=== PATIENT | female | born 1960 | race Caucasian/White ===

== ENCOUNTER 2022-05-25 16:30 | Emergency (ER) | payer OTHER, SELFPAY ==
[~2022-05-25 16:30] MED LIST: Iopamidol-370 76% 500 ML 1 ML ONE
[2022-05-25] MEDS ORDERED: Ondansetron ODT 4 MG TAB ONE (17:30)
[2022-05-25 17:34] LABS: Hemoglobin 18.6 g/dL (12.0-16.0); Mean Corpuscular HGB CONC 32.2 g/dL (32.0-36.0); Mean Corpuscular Hemoglobin 31.8 pg (27.0-31.0); Mean Corpuscular Volume 98.7 fL (78.0-98.0); Mean Platelet Volume 8.8 fL (7.4-10.4); Platelet Count 189 thou/uL (130-400); RBC Distribution Width 12.2 % (11.5-14.5); Red Blood Cell (RBC) Count 5.83 mill/uL (4.20-5.40); White Blood Cell (WBC) Count 5.6 thou/uL (4.8-10.8)
[2022-05-25] MEDS ORDERED: Acetaminophen 325 MG TAB ONE (17:37)
[2022-05-25] MEDS ORDERED: Ketorolac Tromethamine 30 MG/ML VIAL ONE (17:37)
[2022-05-25 18:00] LABS: ALT (SGPT) 21 U/L (8-55); AST (SGOT) 37 U/L (5-34); Albumin 4.4 g/dL (3.5-5.0); Alkaline Phosphatase 89 U/L (40-110); Anion Gap 17 mmol/L (10-20); BUN (Urea Nitrogen) 9 mg/dL (9.8-20.1); Bilirubin, Total 0.4 mg/dL (0.2-1.2); Calc. Creatinine Clearance 0 mL/min (70-130); Carbon Dioxide 25 mmol/L (22-29); Chloride 96 mmol/L (98-107); Estimated GFR 94; Globulin 2.9 g/dL (2.4-3.5); Glucose 104 mg/dL (70-105); Potassium 3.9 mmol/L (3.5-5.1); Protein, Total 7.3 g/dL (6.0-8.3); Sodium 134 mmol/L (136-145)
[2022-05-25 18:12] LABS: Band 26 % (5-11); Lymphocytes 21 % (21-51); MDiff Complete? YES; Monocytes 16 % (0-10); Neutrophil 28 % (42-75); Platelet Morphology Comment Appears Adequate; Polychromasia SLIGHT = 2-3 cells (100X) (0-2/hpf); Reactive Lymphocytes 9 % (0-10)
[2022-05-25 19:50] LABS: INR-International Normal Ratio 0.9; Prothrombin Time 12.7 sec (12.0-14.7)
[2022-05-25 19:51] LABS: PTT 35.9 sec (22.9-36.1)
== END 2022-05-25 21:43 | disposition home or self-care (01) ==
LOC: ERS 16:30
DX: U07.1 COVID-19 (principal); D72.829 Elevated white blood cell count, unspecified; I10 Essential (primary) hypertension; J44.9 Chronic obstructive pulmonary disease, unspecified; F17.200 Nicotine dependence, unspecified, uncomplicated
CPT/HCPCS: 36415; 71045; 74177; 80053; 83605; 84484; 85025; 85610; 85730; 93005; 96361; 96374; J1885; Q0162; Q9967

== ENCOUNTER 2023-03-01 14:18 | Outpatient (CLI) | payer OTHER | END 2023-03-01 14:19 | disposition home or self-care (01) | LOC: BICMRI 14:18 | PROVIDERS: ATTEND Surgery | DX: M54.6 Pain in thoracic spine (principal); M47.22 Other spondylosis with radiculopathy, cervical region; J43.9 Emphysema, unspecified; M48.02 Spinal stenosis, cervical region; M43.8X4 Other specified deforming dorsopathies, thoracic region | CPT/HCPCS: 72050; 72128; 72141; 72146 ==

== ENCOUNTER 2023-04-26 13:51 | Outpatient (CLI) | payer OTHER ==
[2023-04-26 14:51] LABS: Hematocrit 46.6 % (34.9-44.5); Hemoglobin 15.6 g/dL (12.0-15.5); Mean Corpuscular HGB CONC 33.5 g/dL (32.0-36.0); Mean Corpuscular Volume 95.7 fl (81.6-98.3); Mean Platelet Volume 9.8 fl (7.4-10.4); Platelet Count 233 10x3/uL (150-450); RBC Distribution Width 14.3 % (11.5-14.5); Red Blood Cell (RBC) Count 4.87 10x6/uL (3.90-5.03); White Blood Cell (WBC) Count 10.3 10x3/uL (3.5-10.5)
[2023-04-26 15:15] LABS: PTT 27.8 sec (22.0-33.0); Prothrombin Time 10.4 sec (9.5-12.1)
[2023-04-26 15:18] LABS: Anion Gap 16 mmol/L (10-20); BUN (Urea Nitrogen) 11 mg/dL (9.8-20.1); Calc. Creatinine Clearance 0 mL/min (70-130); Calcium 10.3 mg/dL (7.8-10.44); Carbon Dioxide 24 mmol/L (23-31); Chloride 103 mmol/L (98-107); Estimated GFR 88; Glucose 88 mg/dL (80-115); Sodium 139 mmol/L (136-145)
== END 2023-04-26 13:52 | disposition home or self-care (01) ==
LOC: LABBT 13:51
PROVIDERS: ATTEND Surgery
DX: Z01.818 Encounter for other preprocedural examination (principal); M54.12 Radiculopathy, cervical region; M50.00 Cervical disc disorder with myelopathy, unspecified cervical region
CPT/HCPCS: 80048; 85027; 85610; 85730; 93005; 93010

== ENCOUNTER 2023-04-26 14:00 | Inpatient (IN) | payer OTHER ==
[2023-04-26 14:20] VITALS: BMI 16.2
[2023-04-29] MEDS ORDERED: Thrombin 5000 UNITS/5 ML VIAL ONE (06:25)
[2023-04-29] MEDS ORDERED: Fentanyl 250 MCG/5 ML VIAL ONE (06:49)
[2023-04-29] MEDS ORDERED: Sodium Chloride 0.9% 100 ML ONE (07:17)
[2023-04-29] MEDS ORDERED: CEFAZOLIN 2 GM VIAL ONE (07:17)
[2023-04-29] MEDS ORDERED: Midazolam HCl 2 mg/2 ml Vial ONE (07:29)
[2023-04-29] MEDS ORDERED: Albuterol HFA (OR) 200 PUFF INH ONE ×2 (07:39→08:05)
[2023-04-29] MEDS ORDERED: PHENYLEPHRINE-NS 100 MCG/ML 10 ML SYRINGE ONE (08:05)
[2023-04-29] MEDS ORDERED: NEOSTIGMINE 3 MG/3 ML SYR 3 MG/3 ML SYRINGE ONE (08:05)
[2023-04-29] MEDS ORDERED: Glycopyrrolate 0.2 MG/ML 5 ML SYRINGE ONE (08:05)
[2023-04-29] MEDS ORDERED: Lidocaine 1% PF 5 ML VIAL ONE (08:05)
[2023-04-29] MEDS ORDERED: Rocuronium Bromide 10 MG/ML (10ML VIAL) ONE (08:05)
[2023-04-29] MEDS ORDERED: PROPOFOL 200 MG/20 ML VIAL ONE (08:05)
[2023-04-29] MEDS ORDERED: Dexamethasone 20 MG/5 ML VIAL ONE (08:05)
[2023-04-29] MEDS ORDERED: Ondansetron PF 4 MG/2 ML Vial ONE (08:05)
[2023-04-29] MEDS ORDERED: Acetaminophen/Codeine 30-300mg Tablet PO PRN (10:10)
[2023-04-29] MEDS ORDERED: Morphine 2 MG/ML VIAL SLOW IVP PRN (10:10)
[2023-04-29] MEDS ORDERED: Ondansetron PF 4 MG/2 ML Vial IVP PRN (10:10)
[2023-04-29] MEDS ORDERED: traMADol HCl 50 MG TAB PO PRN (10:10)
[2023-04-29] MEDS ORDERED: Acetaminophen 325 MG TAB PO PRN (10:10)
[2023-04-29] MEDS ORDERED: Benzocaine/Menthol 1 LOZ LOZ PO PRN (10:12)
[2023-04-29] MEDS ORDERED: Phenol 118 ML BOT PO PRN (10:12)
[2023-04-29] MEDS ORDERED: hydrALAZINE 20 MG/ML VIAL SLOW IVP PRN (10:12)
[2023-04-29] MEDS ORDERED: Non-Formulary Item 1 EACH (Albuterol Sulfate [Proair Digihaler] 90 MCG Aer.Pw.Bas) PO PRN (10:13)
[2023-04-29] MEDS ORDERED: MORPHINE SULFATE 10 MG PO PRN ×2 (10:13→10:40)
[2023-04-29] MEDS ORDERED: Non-Formulary Item 1 EACH (Trazodone Hcl [Trazodone Hcl] 100 MG Tablet) PO PRN (10:13)
[2023-04-29] MEDS ORDERED: Morphine Sulfate 2 MG/ML SYRINGE SLOW IVP PRN (10:26)
[2023-04-29] MEDS ORDERED: Promethazine HCl 25 MG/ML VIAL IM PRN (10:26)
[2023-04-29] MEDS ORDERED: Ondansetron HCl/PF 4 MG/2 ML Vial IVP PRN (10:26)
[2023-04-29] MEDS ORDERED: HYDROmorphone 2 MG/ML VIAL SLOW IVP PRN (10:26)
[2023-04-29] MEDS ORDERED: PACU-Morphine 4MG/ML VIAL SLOW IVP PRN (10:26)
[2023-04-29] MEDS ORDERED: Albuterol 200 PUFF (6.7GM INHALER) INH PRN (10:37)
[2023-04-29] MEDS ORDERED: traZODone HCl 150 MG TAB PO PRN (10:44)
[2023-04-29] MEDS: Sodium Chloride 0.9% 1,000 ML IV SCH (10:56)
[2023-04-29] MEDS ORDERED: fentaNYL PF 100 MCG/2 ML SYRINGE ONE (11:14)
[2023-04-29] MEDS: Ipratropium Bromide 2.5 ml Neb NEB SCH ×3 (13:45→23:29)
[2023-04-29] MEDS ORDERED: Non-Formulary Item 1 EACH (Gabapentin [Gabapentin] 600 MG Tablet) PO SCH (15:00)
[2023-04-29] MEDS: Gabapentin 300 MG CAP PO SCH ×2 (16:15→19:45)
[2023-04-29] MEDS: CEFAZOLIN 2 GM in Sodium Chloride 0.9% 100 ML IVPB SCH ×2 (16:16→22:02)
[2023-04-29] MEDS: Mometasone 200 MCG/Formoterol 5 MCG 120 PUFF INHALER INH SCH (18:36)
[2023-04-29] MEDS: HYDROcodone/Acetaminophen 7.5/325 mg Tablet PO PRN (19:45)
[2023-04-29] MEDS: tiZANidine HCl 4 MG TAB PO PRN (19:45)
[2023-04-29] MEDS ORDERED: Non-Formulary Item 1 EACH (Teriparatide [Forteo] 2.4 ML Pen.Injctr) SC SCH (21:00)
[2023-04-29] MEDS ORDERED: Non-Formulary Item 1 EACH (Budesonide-Formoterol [Symbicort 160-4.5] 160 MG/4.5 MG Aer) INH SCH (21:00)
[2023-04-29] MEDS ORDERED: TERIPARATIDE SC SCH (21:00)
[2023-04-30] MEDS: Sodium Chloride 0.9% 1,000 ML IV SCH (03:04)
[2023-04-30] MEDS: HYDROcodone/Acetaminophen 7.5/325 mg Tablet PO PRN (03:05)
[2023-04-30] MEDS: tiZANidine HCl 4 MG TAB PO PRN (03:06)
[2023-04-30] MEDS: CEFAZOLIN 2 GM in Sodium Chloride 0.9% 100 ML IVPB SCH (05:17)
[2023-04-30] MEDS: Gabapentin 300 MG CAP PO SCH (08:19)
[2023-04-30] MEDS ORDERED: Losartan 25 MG TAB PO SCH (09:00)
[2023-04-30] MEDS ORDERED: Calcium Carbonate 600 MG + Vit D TAB PO SCH (09:00)
[2023-04-30] MEDS ORDERED: Multivitamin W/ Minerals 1 TAB PO SCH (09:00)
[2023-04-30] MEDS ORDERED: IRBESARTAN 75 MG PO SCH (09:00)
[2023-04-30] MEDS ORDERED: Non-Formulary Item 1 EACH (Sertraline Hcl [Zoloft] 50 MG Tablet) PO SCH (09:00)
[2023-04-30] MEDS ORDERED: Non-Formulary Item 1 EACH (Multivit-Min/Iron/Folic/Lutein [Centrum Silver Women] 1 TABLET PO SCH (09:00)
[2023-04-30] MEDS ORDERED: Sertraline 25 MG TAB PO SCH (09:00)
[2023-04-30] MEDS ORDERED: Non-Formulary Item 1 EACH (Tiotropium [Spiriva Handihaler] 18 MCG Box) INH SCH (09:00)
[2023-04-30] MEDS: Mometasone 200 MCG/Formoterol 5 MCG 120 PUFF INHALER INH SCH (10:30)
[2023-04-30] MEDS: Ipratropium Bromide 2.5 ml Neb NEB SCH (10:31)
[2023-04-30 11:43] VITALS: BP 124/79; TEMP 98.5
== END 2023-04-30 12:01 | disposition home or self-care (01) | DRG 473 ==
LOC: SURG A 04-29 05:36 → INTOOBSV 04-29 05:36 → OBSVTOIN 04-29 12:39 → SURG A 04-29 14:41
PROVIDERS: ADMIT Surgery; ATTEND Surgery
PROC: 0RG20A0 Fusion of 2 or more Cervical Vertebral Joints with Interbody Fusion Device, Anterior Approach, Anterior Column, Open Approach (ICD-10-PCS; principal; 2023-04-29)
PROC: 0RG2070 Fusion of 2 or more Cervical Vertebral Joints with Autologous Tissue Substitute, Anterior Approach, Anterior Column, Open Approach (ICD-10-PCS; 2023-04-29)
PROC: 01N10ZZ Release Cervical Nerve, Open Approach (ICD-10-PCS; 2023-04-29)
PROC: 0RB30ZZ Excision of Cervical Vertebral Disc, Open Approach (ICD-10-PCS; 2023-04-29)
DX: M48.02 Spinal stenosis, cervical region (principal); M47.22 Other spondylosis with radiculopathy, cervical region; M50.10 Cervical disc disorder with radiculopathy, unspecified cervical region; I10 Essential (primary) hypertension; F32.A Depression, unspecified; F43.10 Post-traumatic stress disorder, unspecified; F10.10 Alcohol abuse, uncomplicated; F17.210 Nicotine dependence, cigarettes, uncomplicated; Z90.49 Acquired absence of other specified parts of digestive tract; Z98.51 Tubal ligation status; Z87.81 Personal history of (healed) traumatic fracture; Z82.49 Family history of ischemic heart disease and other diseases of the circulatory system
CPT/HCPCS: C1713; J1100; J2250; J2405; J2704; J3010; J3490; J7050

== ENCOUNTER 2023-05-07 09:04 | Outpatient (CLI) | payer OTHER | END 2023-05-07 09:05 | disposition home or self-care (01) | LOC: RAD 09:04 | PROVIDERS: ATTEND Internal Medicine Critical Care Medicine | DX: R06.00 Dyspnea, unspecified (principal); J44.9 Chronic obstructive pulmonary disease, unspecified | CPT/HCPCS: 71046 ==